=== PATIENT | female | born 1995 | race Caucasian/White ===

== ENCOUNTER 2018-05-04 14:26 | Emergency (ER) | payer MEDICAID, OTHER ==
[2018-05-04 14:27] VITALS: BMI 29.2
--- NOTE | 2018-05-04 15:07 | ED PDOC ---
HPI: SOB/CHF/COPD Time Seen by Provider: 05/04/18 14:59 Chief Complaint (Nursing): Shortness Of Breath History Per: Patient Onset/Duration Of Symptoms: Days (7) Current Symptoms Are (Timing): Intermittent Episodes Quality: Sharp Severity: Mild Associated Symptoms: denies: Fever, Productive Cough, Leg/Calf Pain, Ankle/Leg Swelling Additional Complaint(s): SOB x 1 week assoc with pain on inspiration. Pain radiates to back. Denies fever or cough. Denies injury. Denies dizziness. Past Medical History Vital Signs: Last Vital Signs Temp 98.2 F 05/04/18 14:40 Pulse 72 05/04/18 14:40 Resp 16 05/04/18 14:40 BP 147/93 H 05/04/18 14:40 Pulse Ox 100 05/04/18 14:40 - Medical History PMH: No Chronic Diseases - Family History Family History: States: Unknown Family Hx - Home Medications Home Medications: Ambulatory Orders Medication Instructions Recorded Multivit/Folic Acid/I 1 tab PO DAILY 11/19/15 [] Docusate [Colace] 100 mg PO BID #60 cap 11/23/15 Ferrous Sulfate [Feosol] 325 mg PO DAILY #30 tab 11/23/15 Ibuprofen 600 mg PO Q6H PRN #40 tablet 11/23/15 Labetalol [Trandate] 200 mg PO Q12H #60 tab 11/23/15 Oxycodone HCl/Acetaminophen 1 each PO Q6H PRN #20 tablet 11/23/15 [Percocet 5-325 mg Tablet] Albuterol HFA [Ventolin HFA 90 2 puff IH Q4H #1 puff 05/04/18 mcg/actuation (8 g)] Azithromycin [Zithromax] 250 mg PO DAILY #6 tab 05/04/18 - Allergies Allergies/Adverse Reactions: Allergies Allergy/AdvReac Type Severity Reaction Status Date / Time No Known Allergies Allergy Verified 11/19/15 15:29 Review of Systems ROS Statement: Except As Marked, All Systems Reviewed And Found Negative Constitutional: Negative for: Fever Respiratory: Positive for: Shortness of Breath, Pleuritic Pain. Negative for: Cough Musculoskeletal: Positive for: Back Pain Physical Exam - Reviewed Nursing Documentation Reviewed: Yes Vital Signs Reviewed: Yes - Physical Exam Appears: Positive for: Non-toxic, No Acute Distress Head Exam: Positive for: ATRAUMATIC, NORMAL INSPECTION, NORMOCEPHALIC Skin: Positive for: Normal Color, Warm, DRY Eye Exam: Positive for: EOMI, Normal appearance, PERRL ENT: Positive for: Normal ENT Inspection Neck: Positive for: Normal, Painless ROM Cardiovascular/Chest: Positive for: Regular Rate, Rhythm. Negative for: Chest Non Tender (Tenderness left post chest) Respiratory: Positive for: CNT, Normal Breath Sounds Gastrointestinal/Abdominal: Positive for: Normal Exam, Soft Back: Positive for: Normal Inspection. Negative for: Vertebral Tenderness Extremity: Positive for: Normal ROM Neurologic/Psych: Positive for: Alert, Oriented - ECG O2 Sat by Pulse Oximetry: 100 Disposition - Clinical Impression Clinical Impression: Bronchitis - Patient ED Disposition Is Patient to be Admitted: No Counseled Patient/Family Regarding: Studies Performed, Diagnosis, Need For Followup, Rx Given - Disposition Referrals: [facility] [Outside] Disposition: Routine/Home Disposition Time: 16:00 Condition: FAIR Prescriptions: Albuterol HFA [Ventolin HFA 90 mcg/actuation (8 g)] 2 puff IH Q4H #1 puff Azithromycin [Zithromax] 250 mg PO DAILY #6 tab Instructions: Acute Bronchitis Forms: [facility] (Guatemalan) Print Language: MACEDONIAN
--- NOTE | 2018-05-04 16:16 | RAD ---
Date of service: 05/04/2018 HISTORY: Shortness of breath COMPARISON: No prior. TECHNIQUE: Chest PA and lateral FINDINGS: LINES AND TUBES: None. LUNG AND PLEURA: The lungs are well inflated and clear. No pleural effusion or pneumothorax. HEART AND MEDIASTINUM: The heart is not enlarged. No aortic atherosclerotic calcification present. The hilar and mediastinal contours are within normal limits. SKELETAL STRUCTURES: The bony structures are within normal limits for the patient's age. VISUALIZED UPPER ABDOMEN: Normal. OTHER FINDINGS: None. IMPRESSION: No active pulmonary disease.
[2018-05-04 16:36] VITALS: BP 126/78; PULSE 78; RESP 19; TEMP 97.6; O2SAT 98
== END 2018-05-04 16:36 | disposition home or self-care (01) ==
LOC: H.ER 14:26
DX: J40 Bronchitis, not specified as acute or chronic (principal)